=== PATIENT | male | born 1995 | race Asian ===

== ENCOUNTER 2018-04-05 13:13 | Emergency (ER) | payer OTHER ==
[2018-04-05 14:21] LABS: Protime INR 0.99
[2018-04-05] MEDS ORDERED: NA CHLORIDE 0.9% 1,000 ML ONE (14:22)
[2018-04-05] MEDS ORDERED: ONDANSETRON 4 MG/2 ML VIAL ONE (14:22)
[2018-04-05 14:26] LABS: Absolute Lymphocytes (CBC) 1.3 K/uL (0.7-4.9); Absolute Monocytes 0.8 K/uL (0.1-1.3); Absolute Neutrophil 3.8 K/uL (1.8-8.0); Basophils % 0.3 % (0-1.3); Eosinophils % 2.5 % (0-4.4); Hematocrit 44.1 % (39.6-49.0); Lymphocytes % 21.1 % (15.3-44.8); MCH 32.6 pg (27.0-35.0); MCV 93.6 fL (80-100); MPV 7.3 fL (7.6-11.3); Monocytes % 13.2 % (3.3-12.3); RBC Red Blood Cell Count 4.72 M/uL (4.33-5.43)
[2018-04-05 14:37] LABS: ALT/SGPT 42 U/L (12-78); AST/SGOT 55 U/L (15-37); Albumin 3.6 g/dL (3.4-5.0); Alkaline Phosphatase 96 U/L (45-117); BUN Blood Urea Nitrogen 17 mg/dL (7-18); Bicarbonate 27 mmol/L (21-32); Bilirubin Direct 0.2 mg/dL (0-0.2); Bilirubin Total 0.6 mg/dL (0.2-1.0); Glucose Level 89 mg/dL (74-106); Lipase 136 U/L (73-393); Magnesium 2.2 mg/dL (1.8-2.4); Potassium 3.9 mmol/L (3.5-5.1); Sodium Level 143 mmol/L (136-145); Troponin (Emerg Dept Use Only) < 0.02 ng/mL (0.0-0.045)
[2018-04-05] MEDS ORDERED: KETOROLAC 30 MG/ML INJ ONE (15:11)
--- NOTE | 2018-04-05 15:28 | EDPHYS ---
Physician Documentation [facility] Name: Alex Arita Age: 22 yrs Sex: Male : 1995 Arrival Date: 04/05/2018 Time: 13:15 Bed 23 Private MD: ED Physician Clare Still HPI: 04/05 13:54 This 22 yrs old Male presents to ER via Ambulatory with complaints of Chest Pain. cp 13:54 The patient or guardian reports chest pain that is located primarily in the anterior cp chest wall, left. 13:54 The pain does not radiate. cp 13:54 The chest pain is described as a pressure. cp 13:54 Associated signs and symptoms: Pertinent positives: cough, Pertinent negatives: cp abdominal pain, diaphoresis, dizziness, lower extremity pain, lower extremity swelling, shortness of breath, syncope. Duration: The patient or guardian reports multiple episodes, that wax and wane. Historical: - Allergies: 13:23 No Known Allergies; aj1 - Home Meds: 13:23 None [Active]; aj1 - PMHx: 13:23 Asthma; aj1 - Immunization history:: Flu vaccine is not up to date. - Social history:: Smoking status: Patient uses tobacco products, denies chronic smoking, but will smoke occasionally. - Ebola Screening: : Patient denies travel to an Ebola-affected area in the 21 days before illness onset. ROS: 14:00 Constitutional: Negative for body aches, chills, fever, poor PO intake. cp 14:00 Eyes: Negative for injury, pain, redness, and discharge. cp 14:00 ENT: Negative for drainage from ear(s), ear pain, sore throat, difficulty swallowing, difficulty handling secretions. 14:00 Cardiovascular: Positive for chest pain, Negative for edema, palpitations. 14:00 Respiratory: Positive for cough, with no reported sputum, Negative for wheezing. 14:00 Abdomen/GI: Negative for abdominal pain, constipation, active vomiting. 14:00 Skin: Negative for cellulitis, rash. 14:00 Neuro: Negative for altered mental status, headache, weakness. 14:00 All other systems are negative. Exam: 13:50 ECG was reviewed by the Attending Physician. cp 16:05 Constitutional: The patient appears in no acute distress, alert, awake, cp non-diaphoretic, non-toxic, well developed, well nourished. 16:05 Head/Face: Normocephalic, atraumatic. Eyes: Pupils equal round and reactive to light, cp extra-ocular motions intact. Lids and lashes normal. Conjunctiva and sclera are non-icteric and not injected. Cornea within normal limits. Periorbital areas with no swelling, redness, or edema. ENT: Nares patent. No nasal discharge, no septal abnormalities noted. Tympanic membranes are normal and external auditory canals are clear. Oropharynx with no redness, swelling, or masses, exudates, or evidence of obstruction, uvula midline. Mucous membranes moist. Neck: Trachea midline, no thyromegaly or masses palpated, and no cervical lymphadenopathy. Supple, full range of motion without nuchal rigidity, or vertebral point tenderness. No Meningismus. Chest/axilla: Normal chest wall appearance and motion. Nontender with no deformity. No lesions are appreciated. Cardiovascular: Regular rate and rhythm with a normal S1 and S2. No gallops, murmurs, or rubs. Normal PMI, no JVD. No pulse deficits. Respiratory: Lungs have equal breath sounds bilaterally, clear to auscultation and percussion. No rales, rhonchi or wheezes noted. No increased work of breathing, no retractions or nasal flaring. Abdomen/GI: Soft, non-tender, with normal bowel sounds. No distension or tympany. No guarding or rebound. No evidence of tenderness throughout. Back: No spinal tenderness. No costovertebral tenderness. Full range of motion. Skin: Warm, dry with normal turgor. Normal color with no rashes, no lesions, and no evidence of cellulitis. Vital Signs: 13:23 BP 138 / 87; Pulse 80; Resp 16; Temp 97.7; Pulse Ox 100% on R/A; Weight 56.7 kg (R); aj1 Height 5 ft. 6 in. (167.64 cm) (R); Pain 7/10; 14:44 BP 122 / 81; Pulse 75; Resp 15; Pulse Ox 100% ; kr2 15:44 BP 124 / 80; Pulse 76; Resp 16; Pulse Ox 99% on R/A; rv 13:23 Body Mass Index 20.18 (56.70 kg, 167.64 cm) aj1 MDM: 13:40 Patient medically screened. 15:26 Data reviewed: vital signs, nurses notes, lab test result(s), EKG, radiologic studies, cp plain films. 15:26 Test interpretation: by ED physician or midlevel provider: ECG, plain radiologic cp studies. Counseling: I had a detailed discussion with the patient and/or guardian regarding: the historical points, exam findings, and any diagnostic results supporting the discharge/admit diagnosis, lab results, radiology results, to return to the emergency department if symptoms worsen or persist or if there are any questions or concerns that arise at home. Response to treatment: the patient's symptoms have mildly improved after treatment, and as a result, I will discharge patient. ED course: VSS. Pain improved. Will discharge to home for continued monitoring. 04/05 13:57 Order name: Basic Metabolic Panel; Complete Time: 14:43 04/05 14:43 Interpretation: Normal except: CL 109; GFR 76; CA 8.4. 04/05 13:57 Order name: CBC with Diff; Complete Time: 14:43 04/05 14:46 Interpretation: Normal except: MPV 7.3; MN% 13.2. 04/05 13:57 Order name: LFT's; Complete Time: 14:43 04/05 15:23 Interpretation: Normal except: AST 55. 04/05 13:57 Order name: Magnesium; Complete Time: 14:43 04/05 15:23 Interpretation: MG 2.2; Reviewed. 04/05 13:57 Order name: PT-INR; Complete Time: 14:43 04/05 13:57 Order name: Troponin (emerg Dept Use Only); Complete Time: 14:43 04/05 15:23 Interpretation: TROPED < 0.02; Reviewed. 04/05 13:57 Order name: EKG; Complete Time: 13:58 04/05 13:57 Order name: Cardiac monitoring; Complete Time: 14:12 04/05 13:57 Order name: Influenza Screen (a \T\ B); Complete Time: 14:43 04/05 15:24 Interpretation: Reviewed. 04/05 13:57 Order name: Lipase; Complete Time: 14:43 04/05 14:46 Order name: XRAY Chest Pa And Lat (2 Views) 04/05 13:57 Order name: EKG - Nurse/Tech; Complete Time: 14:12 cp 04/05 13:57 Order name: IV Saline Lock; Complete Time: 14:12 cp 04/05 13:57 Order name: Labs collected and sent; Complete Time: 14:12 cp 04/05 13:57 Order name: O2 Per Protocol; Complete Time: 14:12 cp 04/05 13:57 Order name: O2 Sat Monitoring; Complete Time: 14:12 cp EC:50 Rate is 60 beats/min. Rhythm is regular. NC interval is normal. QRS interval is normal. cp QT interval is normal. Interpreted by me. Reviewed by me. Administered Medications: 14:17 Drug: NS 0.9% 1000 ml Route: IV; Rate: 1 bolus; Site: right forearm; kr2 15:45 Follow up: Response: No adverse reaction; IV Status: Completed infusion rv 14:17 Drug: Zofran 4 mg Route: IVP; Site: right forearm; kr2 14:45 Follow up: Response: No adverse reaction; Nausea is decreased kr2 15:10 Drug: TORadol 30 mg Route: IVP; Site: right antecubital; kr2 15:45 Follow up: Response: No adverse reaction; Pain is decreased rv Disposition: 18:35 Co-signature as Attending Physician, Clare Still MD. Chart complete. id2 Disposition: 04/05/18 15:27 Discharged to Home. Impression: Cough, Other chest pain, Diarrhea, unspecified. - Condition is Stable. - Discharge Instructions: Nonspecific Chest Pain, Diarrhea, Adult, Cough, Adult. - Prescriptions for Naprosyn 500 mg Oral Tablet - take 1 tablet by ORAL route 2 times per day take with food; 20 tablet. Tessalon Perles 100 mg Oral Capsule - take 1 capsule by ORAL route every 8 hours As needed; 15 capsule. - Medication Reconciliation Form, Thank You Letter, Antibiotic Education, Prescription Opioid Use form. - Follow up: Private Physician; When: 2 - 3 days; Reason: symptoms continue. - Problem is new. - Symptoms have improved. Signatures: Dispatcher [employer] EDAmie Rivas RN RN aj1 Jose Ghotra PA PA cp Tiesha Krishna RN RN kr2 Clare Still MD MD ma2 Sergey, Brenden, RN RN rv Corrections: (The following items were deleted from the chart) 14:43 14:43 Normal except: CL 109; GFR 76. cp cp 15:28 15:27 04/05/2018 15:27 Discharged to Home. Impression: Cough; Other chest pain. cp Condition is Stable. Forms are Medication Reconciliation Form, Thank You Letter, Antibiotic Education, Prescription Opioid Use. Follow up: Private Physician; When: 2 - 3 days; Reason: symptoms continue. Problem is new. Symptoms have improved. cp 15:46 15:28 04/05/2018 15:27 Discharged to Home. Impression: Cough; Other chest pain; rv Diarrhea, unspecified. Condition is Stable. Discharge Instructions: Nonspecific Chest Pain, Cough, Adult, Diarrhea, Adult. Prescriptions for Naprosyn 500 mg Oral Tablet - take 1 tablet by ORAL route 2 times per day take with food; 20 tablet, Tessalon Perles 100 mg Oral Capsule - take 1 capsule by ORAL route every 8 hours As needed; 15 capsule. and Forms are Medication Reconciliation Form, Thank You Letter, Antibiotic Education, Prescription Opioid Use. Follow up: Private Physician; When: 2 - 3 days; Reason: symptoms continue. Problem is new. Symptoms have improved. cp
--- NOTE | 2018-04-05 15:28 | ER ---
Nurse's Notes [facility] Name: Alex Arita Age: 22 yrs Sex: Male : 1995 Arrival Date: 04/05/2018 Time: 13:15 Bed 23 Private MD: Diagnosis: Cough;Other chest pain;Diarrhea, unspecified Presentation: 04/05 13:21 Presenting complaint: Patient states: "I've been feeling sick since Monday. I've been aj1 feeling really tired and since Monday evening I've been feeling constant pressure in my chest on my left side. I have a nasty cough. I haven't been able to sleep. I've felt really off balance but I think that's just because Im not sleeping. Transition of care: patient was not received from another setting of care. Onset of symptoms was April 05, 2018. Risk Assessment: Do you want to hurt yourself or someone else? Patient reports no desire to harm self or others. Initial Sepsis Screen: Does the patient meet any 2 criteria? No. Patient's initial sepsis screen is negative. Does the patient have a suspected source of infection? No. Patient's initial sepsis screen is negative. Care prior to arrival: None. 13:21 Method Of Arrival: Ambulatory [facility] 13:21 Acuity: SELAM 3 aj1 Triage Assessment: 13:23 General: Appears in no apparent distress. comfortable, Behavior is calm, cooperative, aj1 appropriate for age. Pain: Complains of pain in anterior aspect of right upper chest Pain currently is 7 out of 10 on a pain scale. Quality of pain is described as dull, Is intermittent. Neuro: Level of Consciousness is awake, alert, obeys commands. Cardiovascular: Patient's skin is warm and dry. Respiratory: Airway is patent Respiratory effort is even, unlabored, Respiratory pattern is regular, symmetrical. Historical: - Allergies: 13:23 No Known Allergies; aj1 - Home Meds: 13:23 None [Active]; aj1 - PMHx: 13:23 Asthma; aj1 - Immunization history:: Flu vaccine is not up to date. - Social history:: Smoking status: Patient uses tobacco products, denies chronic smoking, but will smoke occasionally. - Ebola Screening: : Patient denies travel to an Ebola-affected area in the 21 days before illness onset. Screenin:47 Abuse screen: Denies threats or abuse. Denies injuries from another. Nutritional kr2 screening: No deficits noted. Tuberculosis screening: No symptoms or risk factors identified. Fall Risk None identified. Assessment: 13:47 General: Appears in no apparent distress. comfortable, well groomed, well developed, kr2 well nourished, Behavior is calm, cooperative, appropriate for age. Pain: Complains of pain in anterior aspect of right upper chest Pain does not radiate. Pain currently is 4 out of 10 on a pain scale. Quality of pain is described as pressure, Pain began 2-3 days ago. Is continuous. Neuro: Level of Consciousness is awake, alert, obeys commands, Oriented to person, place, time, situation, Appropriate for age. Cardiovascular: Heart tones S1 S2 present Capillary refill < 3 seconds in bilateral fingers Patient's skin is warm and dry. Rhythm is sinus rhythm. Respiratory: Airway is patent Respiratory effort is even, unlabored, Respiratory pattern is regular, symmetrical. GI: Abdomen is flat, non-distended, Bowel sounds present X 4 quads. Abd is soft and non tender X 4 quads. Reports diarrhea, nausea. EENT: Oral mucosa is moist. Derm: Skin is intact, is healthy with good turgor, Skin is pink, warm \\T\\ dry. Musculoskeletal: Circulation, motion, and sensation intact. 14:44 Reassessment: Patient appears in no apparent distress at this time. Patient and/or kr2 family updated on plan of care and expected duration. Pain level reassessed. Patient is alert, oriented x 3, equal unlabored respirations, skin warm/dry/pink. Patient states feeling better. 15:44 Reassessment: Patient appears in no apparent distress at this time. Patient and/or rv family updated on plan of care and expected duration. Pain level reassessed. Patient is alert, oriented x 3, equal unlabored respirations, skin warm/dry/pink. Patient states feeling better. Vital Signs: 13:23 BP 138 / 87; Pulse 80; Resp 16; Temp 97.7; Pulse Ox 100% on R/A; Weight 56.7 kg (R); aj1 Height 5 ft. 6 in. (167.64 cm) (R); Pain 7/10; 14:44 BP 122 / 81; Pulse 75; Resp 15; Pulse Ox 100% ; kr2 15:44 BP 124 / 80; Pulse 76; Resp 16; Pulse Ox 99% on R/A; rv 13:23 Body Mass Index 20.18 (56.70 kg, 167.64 cm) aj1 Vitals: 14:44 Cardiac Rhythm Assessment Sinus rhythm. kr2 ED Course: 13:15 Patient arrived in ED. ds1 13:22 Triage completed. aj1 13:23 Arm band placed on Patient placed in an exam room. aj1 13:39 Jose Ghotra PA is PHCP. cp 13:39 Clare Still MD is Attending Physician. cp 13:46 Tiesha Krishna, ESTRELLA is Primary Nurse. kr2 13:46 EKG done, by ED staff, reviewed by Jose NEGRO. Patient maintains SpO2 saturation kr2 greater than 95% on room air. 13:47 Patient has correct armband on for positive identification. Bed in low position. Call kr2 light in reach. Side rails up X 1. Adult w/ patient. packaging clerk on. Pulse ox on. NIBP on. Door closed. Warm blanket given. Pillow given. Head of bed elevated. 14:09 Inserted saline lock: 20 gauge in right forearm, using aseptic technique. Blood kr2 collected. 15:04 Patient moved to radiology. kp1 15:05 X-ray completed. Patient tolerated procedure well. kp1 15:06 XRAY Chest Pa And Lat (2 Views) In Process Unspecified. EDMS 15:45 No provider procedures requiring assistance completed. IV discontinued, intact, rv bleeding controlled, No redness/swelling at site. Pressure dressing applied. Administered Medications: 14:17 Drug: NS 0.9% 1000 ml Route: IV; Rate: 1 bolus; Site: right forearm; kr2 15:45 Follow up: Response: No adverse reaction; IV Status: Completed infusion rv 14:17 Drug: Zofran 4 mg Route: IVP; Site: right forearm; kr2 14:45 Follow up: Response: No adverse reaction; Nausea is decreased kr2 15:10 Drug: TORadol 30 mg Route: IVP; Site: right antecubital; kr2 15:45 Follow up: Response: No adverse reaction; Pain is decreased rv Outcome: 15:27 Discharge ordered by MD. cp 15:45 Discharged to home ambulatory, with family. rv 15:45 Condition: good 15:45 Discharge instructions given to patient, family, Instructed on discharge instructions, follow up and referral plans. medication usage, Demonstrated understanding of instructions, follow-up care, medications, Prescriptions given X 2. 15:46 Patient left the ED. rv Signatures: Dispatcher [employer] EDMS Amie Cornell, RN RN aj1 Carlita Avila ds1 Jose Ghotra PA PA cp Poole, Kathy kp1 Tiesha Krishna RN RN kr2 Brenden Rincon RN RN rv
--- NOTE | 2018-04-05 16:17 | RAD REPORT ---
EXAM DESCRIPTION: RAD - Chest Pa And Lat (2 Views) - 04/05/2018 3:07 pm CLINICAL HISTORY: Cough;Chest pain Chest pain. COMPARISON: No comparisons FINDINGS: The lungs are clear. The heart is normal in size. No displaced fractures. IMPRESSION: No acute or concerning finding suspected.
--- NOTE | 2018-04-06 06:19 | EKG ---
Test Date: 2018-04-05 Test Time: 13:42:30 Mobility Scooter Repairer: JOEY MEASUREMENT RESULTS: Intervals: Rate: 60 SC: 144 QRSD: 88 QT: 378 QTc: 378 [place]: P: 79 SC: 144 QRS: 75 T: 59 INTERPRETIVE STATEMENTS: Normal sinus rhythm with sinus arrhythmia Normal ECG No previous ECG available for comparison Electronically Signed On 04-06-18 06:18:32 MEDICAL WRITER by Danis Schwartz
== END 2018-04-05 15:46 | disposition home or self-care (01) ==
LOC: ER 13:13
DX: R05 Cough (principal); R19.7 Diarrhea, unspecified; Z72.0 Tobacco use
CPT/HCPCS: 36415; 71046; 80048; 80076; 83690; 83735; 84484; 85025; 85610; 87804; 93005; 99285; J2405; J7030

== ENCOUNTER 2019-03-26 19:49 | Emergency (ER) | payer OTHER ==
--- OUTSIDE RECORDS SUMMARY | 2019-03-26 19:51 | XMS REPORT ---
:1995 Author Organization [employer] Care Team Providers Name Role Phone Sam Deshpande Provider Role Unavailable Allergies, Adverse Reactions, Alerts Substance Reaction Event Type N.K.D.A. Info Not Available Non Drug Allergy Problems Problem Type Condition Code Onset Dates Condition Status Assessment Current moderate episode of major F32.1 Active depressive disorder without prior episode Assessment Generalized anxiety disorder F41.1 Active Problem Current moderate episode of major F32.1 Active depressive disorder without prior episode Problem Generalized anxiety disorder F41.1 Active Assessment High risk heterosexual behavior Z72.51 Active Assessment Need for influenza vaccination Z23 Active Assessment Well adult on routine health check Z00.00 Active Assessment Screening for STD (sexually Z11.3 Active transmitted disease) Medications No Known Medications Results No Known Results Immunizations Vaccine Administration Date Afluria Jan 30, 2019 Summary Purpose [employer]Clinical[employer] Submission
[2019-03-26] MEDS ORDERED: NA CHLORIDE 0.9% 1,000 ML ONE (21:13)
[2019-03-26 21:25] LABS: Absolute Lymphocytes (CBC) 2.7 K/uL (0.7-4.9); Basophils % 0.7 % (0-1.3); Hematocrit 46.5 % (39.6-49.0); Lymphocytes % 30.3 % (15.3-44.8); MPV 6.9 fL (7.6-11.3); RBC Red Blood Cell Count 4.86 M/uL (4.33-5.43)
[2019-03-26 21:28] LABS: Protime INR 0.94
[2019-03-26 21:31] LABS: Urine Blood NEGATIVE (NEG); Urine Glucose NEGATIVE (NEG); Urine Protein NEGATIVE (NEG)
[2019-03-26 21:48] LABS: Barbiturates NEGATIVE (NEGATIVE); Benzodiazepines NEGATIVE (NEGATIVE); Cocaine NEGATIVE (NEGATIVE); METHAMPHETAM NEGATIVE (NEGATIVE); Methadone NEGATIVE (NEGATIVE); Opiates NEGATIVE (NEGATIVE); Phencyclidine NEGATIVE (NEGATIVE); THC Cannibis POSITIVE (NEGATIVE)
--- NOTE | 2019-03-26 22:08 | ER ---
Nurse's Notes [facility] Name: Alex Arita Age: 23 yrs Sex: Male : 1995 Arrival Date: 03/26/2019 Time: 19:56 Bed 20 Private MD: Diagnosis: Weakness;Abuse of other non-psychoactive substances Presentation: 03/26 20:05 Presenting complaint: Patient states: HAVE TROUBLE CONVERSING WITH PEOPLE LATELY. rv MOSTLY OUT OF FOCUS AND KEEPS ON FORGETTING EVERYTHING. I FEEL TIRED AND STRESS OUT. DENIES ANY THOUGHTS OF HURTING SELF OR OTHERS BUT VERBALIZED DEPRESSION. Transition of care: patient was not received from another setting of care. Onset of symptoms. Risk Assessment: Do you want to hurt yourself or someone else? Patient reports no desire to harm self or others. Initial Sepsis Screen: Does the patient meet any 2 criteria? No. Patient's initial sepsis screen is negative. Does the patient have a suspected source of infection? No. Patient's initial sepsis screen is negative. Care prior to arrival: None. 20:05 Method Of Arrival: Ambulatory rv 20:05 Acuity: SELAM 4 rv Triage Assessment: 20:08 General: Appears in no apparent distress. Behavior is calm, cooperative. Pain: Denies rv pain. Historical: - Allergies: 20:07 No Known Allergies; rv - Home Meds: 20:07 None [Active]; rv - PMHx: 20:07 Asthma; rv - PSHx: 20:07 None; rv - Immunization history:: Adult Immunizations up to date. - Social history:: Smoking status: Patient/guardian denies using tobacco. - Ebola Screening: : No symptoms or risks identified at this time. - Family history:: not pertinent. Screenin:08 Abuse screen: Denies threats or abuse. Denies injuries from another. Nutritional rv screening: No deficits noted. Tuberculosis screening: No symptoms or risk factors identified. Fall Risk None identified. Assessment: 21:05 General: Appears in no apparent distress. Behavior is anxious. Pain: Denies pain. ea Neuro: Level of Consciousness is awake, alert, obeys commands, Oriented to person, place, time, situation. Respiratory: Airway is patent Respiratory effort is even, unlabored, Respiratory pattern is regular, symmetrical. GI: Reports "I am not eating". Derm: Skin is pink, warm \\T\\ dry. 21:36 Reassessment: Patient and/or family updated on plan of care and expected duration. Pain ea level reassessed. Patient is alert, oriented x 3, equal unlabored respirations, skin warm/dry/pink. family remains at bedside. 22:30 Reassessment: Patient and/or family updated on plan of care and expected duration. Pain ea level reassessed. Patient is alert, oriented x 3, equal unlabored respirations, skin warm/dry/pink. Discharge instruction given to patient, verbalized the understanding of instruction. Pt left ED ambulatory accompanied by family. Pt tolerating well. Vital Signs: 20:07 BP 148 / 78; Pulse 91; Resp 17; Temp 98.9; Pulse Ox 100% ; Weight 55.79 kg; Height 5 rv ft. 6 in. (167.64 cm); Pain 0/10; 21:30 BP 118 / 74; Pulse 74; Resp 18; Pulse Ox 98% on R/A; ea 22:00 BP 121 / 78; Pulse 70; Resp 18; Pulse Ox 99% on R/A; ea 20:07 Body Mass Index 19.85 (55.79 kg, 167.64 cm) rv ED Course: 19:56 Patient arrived in ED. cf2 20:07 Triage completed. rv 20:18 Claudia Dixon, ESTRELLA is Primary Nurse. ea 20:20 Jose Moon MD is Attending Physician. howard 21:06 Patient has correct armband on for positive identification. Bed in low position. Call ea light in reach. 21:07 Patient placed in an exam room, on a stretcher, on pulse oximetry. ea 21:14 Inserted saline lock: 20 gauge in right antecubital area, using aseptic technique. mt Blood collected. 22:28 IV discontinued, intact, bleeding controlled, No redness/swelling at site. Pressure ea dressing applied. 22:30 No provider procedures requiring assistance completed. ea Administered Medications: 21:33 Drug: NS 0.9% 1000 ml Route: IV; Rate: 1 bolus; Site: right antecubital; ea 22:15 Follow up: Response: No adverse reaction; IV Status: Completed infusion; IV Intake: ea 500ml Intake: 22:15 IV: 500ml; Total: 500ml. ea Outcome: 22:07 Discharge ordered by . howard 22:31 Discharged to home ambulatory, with family. almas 22:31 Condition: stable 22:31 Instructed on discharge instructions, follow up and referral plans. Demonstrated understanding of instructions, follow-up care. 22:32 Patient left the ED. ea Signatures: Jose Moon MD MD cha Thompson, Moriah mt Antunez, Elena RN RN Brenden Duenas RN Javed Hale cf2 Corrections: (The following items were deleted from the chart) 20:09 20:05 Acuity: SELAM 3 rv rv
--- NOTE | 2019-03-26 22:08 | EDPHYS ---
Physician Documentation [facility] Name: Alex Arita Age: 23 yrs Sex: Male : 1995 Arrival Date: 03/26/2019 Time: 19:56 Bed 20 Private MD: ED Physician Jose Moon HPI: 03/26 21:04 This 23 yrs old Male presents to ER via Ambulatory with complaints of Doesn't howard Feel Right. 21:04 used meth 2 weeks. Onset: The symptoms/episode began/occurred 10 day(s) ago. Severity howard of symptoms: At their worst the symptoms were mild in the emergency department the symptoms are unchanged. The patient has not experienced similar symptoms in the past. Historical: - Allergies: 20:07 No Known Allergies; rv - Home Meds: 20:07 None [Active]; rv - PMHx: 20:07 Asthma; rv - PSHx: 20:07 None; rv - Immunization history:: Adult Immunizations up to date. - Social history:: Smoking status: Patient/guardian denies using tobacco. - Ebola Screening: : No symptoms or risks identified at this time. - Family history:: not pertinent. ROS: 21:04 Constitutional: Negative for fever, chills, and weight loss, Eyes: Negative for injury, howard pain, redness, and discharge, ENT: Negative for injury, pain, and discharge, Neck: Negative for injury, pain, and swelling, Cardiovascular: Negative for chest pain, palpitations, and edema, Respiratory: Negative for shortness of breath, cough, wheezing, and pleuritic chest pain, Abdomen/GI: Negative for abdominal pain, nausea, vomiting, diarrhea, and constipation, Back: Negative for injury and pain, : Negative for injury, bleeding, discharge, and swelling, MS/Extremity: Negative for injury and deformity, Skin: Negative for injury, rash, and discoloration, Neuro: Negative for headache, weakness, numbness, tingling, and seizure, Allergy/Immunology: Negative for hives, rash, and allergies, Endocrine: Negative for neck swelling, polydipsia, polyuria, polyphagia, and marked weight changes, Hematologic/Lymphatic: Negative for swollen nodes, abnormal bleeding, and unusual bruising. Exam: 21:04 Constitutional: This is a well developed, well nourished patient who is awake, alert, howard and in no acute distress. Head/Face: Normocephalic, atraumatic. Eyes: Pupils equal round and reactive to light, extra-ocular motions intact. Lids and lashes normal. Conjunctiva and sclera are non-icteric and not injected. Cornea within normal limits. Periorbital areas with no swelling, redness, or edema. ENT: Nares patent. No nasal discharge, no septal abnormalities noted. Tympanic membranes are normal and external auditory canals are clear. Oropharynx with no redness, swelling, or masses, exudates, or evidence of obstruction, uvula midline. Mucous membranes moist. Neck: Trachea midline, no thyromegaly or masses palpated, and no cervical lymphadenopathy. Supple, full range of motion without nuchal rigidity, or vertebral point tenderness. No Meningismus. Chest/axilla: Normal chest wall appearance and motion. Nontender with no deformity. No lesions are appreciated. Cardiovascular: Regular rate and rhythm with a normal S1 and S2. No gallops, murmurs, or rubs. Normal PMI, no JVD. No pulse deficits. Respiratory: Lungs have equal breath sounds bilaterally, clear to auscultation and percussion. No rales, rhonchi or wheezes noted. No increased work of breathing, no retractions or nasal flaring. Abdomen/GI: Soft, non-tender, with normal bowel sounds. No distension or tympany. No guarding or rebound. No evidence of tenderness throughout. Back: No spinal tenderness. No costovertebral tenderness. Full range of motion. Skin: Warm, dry with normal turgor. Normal color with no rashes, no lesions, and no evidence of cellulitis. MS/ Extremity: Pulses equal, no cyanosis. Neurovascular intact. Full, normal range of motion. Neuro: Awake and alert, GCS 15, oriented to person, place, time, and situation. Cranial nerves II-XII grossly intact. Motor strength 5/5 in all extremities. Sensory grossly intact. Cerebellar exam normal. Normal gait. Psych: Awake, alert, with orientation to person, place and time. Behavior, mood, and affect are within normal limits. 21:07 Psych: Behavior/mood is pleasant, cooperative, Affect is calm, Oriented to person, howard place, time, Patient has no thoughts/intents to harm self or others. Judgement / Insight is normal. Delusions/hallucinations are not present. Vital Signs: 20:07 BP 148 / 78; Pulse 91; Resp 17; Temp 98.9; Pulse Ox 100% ; Weight 55.79 kg; Height 5 rv ft. 6 in. (167.64 cm); Pain 0/10; 21:30 BP 118 / 74; Pulse 74; Resp 18; Pulse Ox 98% on R/A; ea 22:00 BP 121 / 78; Pulse 70; Resp 18; Pulse Ox 99% on R/A; ea 20:07 Body Mass Index 19.85 (55.79 kg, 167.64 cm) rv MDM: 20:20 Patient medically screened. [facility] 21:06 Data reviewed: vital signs, nurses notes, lab test result(s), EKG. [facility] 03/26 21:03 Order name: Acetaminophen; Complete Time: 22:12 [facility] 03/26 21:03 Order name: Basic Metabolic Panel; Complete Time: 22:12 [facility] 03/26 21:03 Order name: CBC with Diff; Complete Time: 22:04 [facility] 03/26 21:03 Order name: ETOH Level; Complete Time: 22:12 [facility] 03/26 21:03 Order name: Hepatic Function; Complete Time: 22:12 [facility] 03/26 21:03 Order name: PT-INR; Complete Time: 22:04 [facility] 03/26 21:03 Order name: Ptt, Activated; Complete Time: 22:04 [facility] 03/26 21:03 Order name: Salicylate [facility] 03/26 21:03 Order name: Urine Drug Screen; Complete Time: 22:04 [facility] 03/26 21:03 Order name: EKG; Complete Time: 21:04 [facility] 03/26 21:03 Order name: EKG - Nurse/Tech; Complete Time: 21:23 [facility] 03/26 21:03 Order name: IV Saline Lock; Complete Time: 21:15 [facility] 03/26 21:25 Order name: Urine Dipstick--Ancillary (enter results); Complete Time: 22:04 cm6 03/26 21:03 Order name: Labs collected and sent; Complete Time: 21:15 [facility] 03/26 21:03 Order name: Urine Dipstick-Ancillary (obtain specimen); Complete Time: 21:23 [facility] 03/26 22:12 Order name: PO challenge: juice; Complete Time: 22:20 [facility] Administered Medications: 21:33 Drug: NS 0.9% 1000 ml Route: IV; Rate: 1 bolus; Site: right antecubital; ea 22:15 Follow up: Response: No adverse reaction; IV Status: Completed infusion; IV Intake: ea 500ml Disposition: 03/26/19 22:07 Discharged to Home. Impression: Weakness, Abuse of other non-psychoactive substances. - Condition is Stable. - Discharge Instructions: Substance Use Disorder, Weakness, Fatigue, Weakness, [id number]. - Medication Reconciliation Form, Thank You Letter, Antibiotic Education, Prescription Opioid Use form. - Follow up: Private Physician; When: 2 - 3 days; Reason: Recheck today's complaints, Continuance of care, Re-evaluation by your physician. - Problem is new. - Symptoms have improved. Signatures: Dispatcher [employer] EDMS Jose Moon MD MD cha Antunez, Elena, RN RN Brenden Duenas RN ESTRELLA rv Corrections: (The following items were deleted from the chart) 22:32 22:07 03/26/2019 22:07 Discharged to Home. Impression: Weakness; Abuse of other ea non-psychoactive substances. Condition is Stable. Discharge Instructions: Substance Use Disorder, Weakness, Fatigue, Weakness, [id number]. Forms are Medication Reconciliation Form, Thank You Letter, Antibiotic Education, Prescription Opioid Use. Follow up: Private Physician; When: 2 - 3 days; Reason: Recheck today's complaints, Continuance of care, Re-evaluation by your physician. Problem is new. Symptoms have improved. howard
[2019-03-26 22:09] LABS: ALT/SGPT 24 U/L (12-78); AST/SGOT 22 U/L (15-37); Albumin 4.3 g/dL (3.4-5.0); Alkaline Phosphatase 95 U/L (45-117); BUN Blood Urea Nitrogen 21 mg/dL (7-18); Bicarbonate 29 mmol/L (21-32); Bilirubin Direct 0.1 mg/dL (0-0.2); Bilirubin Total 0.4 mg/dL (0.2-1.0); Glucose Level 70 mg/dL (74-106); Potassium 4.1 mmol/L (3.5-5.1); Protein, Total 7.6 g/dL (6.4-8.2); Sodium Level 140 mmol/L (136-145)
[2019-03-26 22:40] VITALS: TEMP 98.9
[2019-03-26 22:43] VITALS: BP 121/78; O2SAT 99
--- NOTE | 2019-03-27 07:44 | EKG ---
Test Date: 2019-03-26 Test Time: 21:21:23 Plug Saw Operator: PHU MEASUREMENT RESULTS: Intervals: Rate: 71 SD: 136 QRSD: 84 QT: 358 QTc: 389 [place]: P: 78 SD: 136 QRS: 63 T: 48 INTERPRETIVE STATEMENTS: Normal sinus rhythm Normal ECG Compared to ECG 04/05/2018 13:42:30 Sinus arrhythmia no longer present Electronically Signed On 03-27-19 07:43:00 LUMBER INSPECTOR by Danis Schwartz
== END 2019-03-26 22:32 | disposition home or self-care (01) ==
LOC: ER 19:49
DX: F55.8 Abuse of other non-psychoactive substances (principal)
CPT/HCPCS: 93005; 85025; 80048; 36415; 80320; 80329 ×2; 85610; 80076; 80307 ×8; 85730; 81003; 96360; 99284; J7030